=== PATIENT | male | born 1980 | race Caucasian/White ===

== ENCOUNTER 2016-12-16 13:52 | Emergency (ER) | payer BC ==
[2016-12-16 14:16] VITALS: O2SAT 100
[2016-12-16] MEDS ORDERED: Sodium Chloride 0.9% 1,000 ML IV SCH (14:45)
--- NOTE | 2016-12-16 15:29 | ED PDOC ---
HPI: Abdomen Time Seen by Provider: 12/16/16 14:12 Chief Complaint (Nursing): Abdominal Pain Additional Complaint(s): Patient is a 35 y/o M presenting with abdominal pain x 3 weeks. He reports that the pain started after returning from vacation in [facility]. He reports that the pain is suprapubic pain that is worse with urination. Denies fever, chills, diarrhea/constipation, scrotal swelling or penile discharge. Reports pain unchanged x 3 weeks Past Medical History Vital Signs: Last Vital Signs Temp 97.7 F 12/16/16 14:12 Pulse 57 L 12/16/16 14:12 Resp 18 12/16/16 14:12 BP 124/84 12/16/16 14:12 Pulse Ox 100 12/16/16 18:23 - Medical History PMH: No Chronic Diseases - Surgical History Surgical History: No Surg Hx - Family History Family History: States: No Known Family Hx - Allergies Allergies/Adverse Reactions: Allergies Allergy/AdvReac Type Severity Reaction Status Date / Time No Known Allergies Allergy Verified 12/16/16 14:12 Review of Systems Constitutional: Negative for: Fever, Chills Cardiovascular: Negative for: Chest Pain, Palpitations, Paroxysmal Noc. Dyspnea , Light Headedness Respiratory: Negative for: Cough, Shortness of Breath, SOB with Exertion Gastrointestinal: Positive for: Abdominal Pain. Negative for: Nausea, Vomiting , Diarrhea, Constipation Genitourinary Male: Positive for: Dysuria. Negative for: Frequency, Incontinence, Hematuria, Penile Discharge, Scrotal Pain, Rash, Penile Pain Skin: Negative for: Rash Neurological: Negative for: Weakness, Numbness Physical Exam - Reviewed Nursing Documentation Reviewed: Yes Vital Signs Reviewed: Yes - Physical Exam Appears: Positive for: Well, Non-toxic Head Exam: Positive for: ATRAUMATIC, NORMAL INSPECTION, NORMOCEPHALIC Skin: Positive for: Normal Color, Warm, DRY Eye Exam: Positive for: EOMI, Normal appearance, PERRL Neck: Positive for: Normal, Painless ROM Cardiovascular/Chest: Positive for: Regular Rate, Rhythm Respiratory: Positive for: Normal Breath Sounds. Negative for: Rales, Rhonchi, Stridor, Wheezing Gastrointestinal/Abdominal: Positive for: Soft. Negative for: Tenderness, Mass , Distended Back: Positive for: Normal Inspection. Negative for: L CVA Tenderness, R CVA Tenderness Extremity: Positive for: Normal ROM Neurologic/Psych: Positive for: Alert, Oriented - Laboratory Results Result Diagrams: 12/16/16 15:25 12/16/16 15:25 - ECG O2 Sat by Pulse Oximetry: 100 Medical Decision Making Medical Decision Making: Patient reports 3 week history of abdominal pain. Abdomen soft NT/ND. Afebrile and well appearing. Labs and ua grossly normal. CT ordered. Nurse came to me and reports that patient does not want to stay for CT. Patient is AAOx3 and reports that he will see his PMD tomorrow for outpatient CT. He understands that he can return at any time for further evaluation. He was instructed on importance of following up for CT and GI evaluation. Disposition - Clinical Impression Clinical Impression: Abdominal pain - Disposition Disposition: Against Medical Advice Disposition Time: 17:17 Condition: GOOD Additional Instructions: Follow up with PMD tomorrow for further evaluation of chronic abdominal pain. You need CT and likely endoscopy. Return to ED you want further evaluation. Forms: [employer] ([place])
[2016-12-16 15:41] LABS: BASO % 0.8 % (0.0-2.0); EOS % 1.3 % (0.0-4.0); HEMATOCRIT 43.7 % (35.0-51.0); LYMPH # 1.6 K/uL (1.0-4.3); LYMPH % 52.5 % (20.0-40.0); MEAN CELL VOLUME 88.4 fl (80.0-94.0); MEAN CORPUSCULAR HGB CONC 32.8 g/dL (33.0-37.0); MEAN PLATELET VOLUME 9.8 fl (7.2-11.7); MONO # 0.4 K/uL (0.0-0.8); MONO % 13.5 % (0.0-10.0); NEUT % 31.9 % (50.0-75.0); NRBC % 0.2 % (0.0-0.0); RED CELL DISTRIBUTION WIDTH 13.6 % (11.5-14.5); WHITE BLOOD COUNT 3.1 K/uL (4.8-10.8)
[2016-12-16 15:58] LABS: ALB/GLOB RATIO 1.4 (1.0-2.1); ALKALINE PHOSPHATASE 54 U/L (38-126); ALT/SGPT 25 U/L (21-72); AST/SGOT 36 U/L (17-59); BILIRUBIN,TOTAL 0.8 mg/dl (0.2-1.3); BLOOD UREA NITROGEN 10 mg/dl (9-20); CALCIUM 9.4 mg/dL (8.4-10.2); CARBON DIOXIDE 26 mmol/L (22-30); CHLORIDE 103 mmol/L (98-107); GFR AFRICAN-AMERICAN > 60; GLUCOSE,RANDOM 75 mg/dL (75-110); LIPASE 75 U/L (23-300); POTASSIUM 4.7 MMOL/L (3.6-5.0); SODIUM 141 mmol/l (132-148); TOTAL PROTEIN 8.3 G/DL (6.3-8.2)
[2016-12-16 16:08] LABS: RBC URINE 1 /hpf (0-3); URINE BILIRUBIN NEGATIVE (NEGATIVE); URINE BLOOD NEGATIVE (NEGATIVE); URINE COLOR STRAW (YELLOW); URINE GLUCOSE (UA) NEG (Normal); URINE KETONE NEGATIVE (NEGATIVE); URINE LEUKOCYTE ESTERASE NEG Leu/uL (Negative); URINE PROTEIN NEGATIVE (NEGATIVE); URINE UROBILINOGEN 0.2-1.0 mg/dL (0.2-1.0); WBC URINE < 1 /hpf (0-5)
[2016-12-16 16:09] LABS: URINE BACTERIA RARE (<OCC)
[2016-12-16] MEDS ORDERED: Sodium Chloride 0.9% 0 ML IV ONE (17:44)
[2016-12-16] MEDS ORDERED: Iohexol 300 50 ML ONE (17:44)
[2016-12-16 18:58] VITALS: BP 110/78; PULSE 78; RESP 19; TEMP 97.8
== END 2016-12-16 18:58 | disposition home or self-care (01) ==
LOC: H.ER 13:52
DX: R10.9 Unspecified abdominal pain (principal)
CPT/HCPCS: 80053; 81003; 83690; 85025; 96374; 99281; J1885; J7040